=== PATIENT | male | born 1945 | race Caucasian/White ===

== ENCOUNTER 2022-05-27 14:58 | Outpatient (CLI) | payer MEDICARE | END 2022-05-27 14:59 | disposition home or self-care (01) | LOC: CSHLAB 14:58 | PROVIDERS: ATTEND Internal Medicine Critical Care Medicine | DX: Z20.822 Contact with and (suspected) exposure to COVID-19 (principal) | CPT/HCPCS: 87811 ==

== ENCOUNTER 2022-06-01 07:24 | Outpatient (CLI) | payer MEDICARE | END 2022-06-01 07:25 | disposition home or self-care (01) | LOC: CSHCP 07:24 | PROVIDERS: ATTEND Internal Medicine Critical Care Medicine | DX: J44.9 Chronic obstructive pulmonary disease, unspecified (principal) | CPT/HCPCS: 94060; 94726; 94729; 94760 ==